=== PATIENT | male | born 1995 | race Caucasian/White ===

== ENCOUNTER 2017-09-07 03:11 | Emergency (ER) | payer BC ==
[2017-09-07 03:42] LABS: ADD MAN DIFF? NO
[2017-09-07 03:46] LABS: BASO % 1 % (0-3); EOS # 0.1 x10^3/uL (0.0-0.7); EOS % 1 % (0-3); HEMATOCRIT 41.8 % (39.0-53.0); HEMOGLOBIN 14.6 g/dL (13.0-17.5); LYMPH # 1.8 x10^3/uL (1.0-4.8); LYMPH % 30 % (24-48); MEAN CORPUSCULAR HEMOGLOBIN 30 pg (25-35); MEAN CORPUSCULAR HGB CONC 35 g/dL (31-37); MEAN CORPUSCULAR VOLUME 85 fL (79-100); MONO # 0.5 x10^3/uL (0.0-1.1); MONO % 7 % (0-9); NEUT # 3.8 x10^3uL (1.8-7.7); NEUT % 61 % (31-73); PLATELET COUNT 227 x10^3/uL (140-400); RED BLOOD COUNT 4.91 x10^6/uL (4.30-5.70); RED CELL DISTRIBUTION WIDTH 13.1 % (11.5-14.5); WHITE BLOOD COUNT 6.2 x10^3/uL (4.0-11.0)
[2017-09-07 04:02] LABS: ANION GAP 8 (6-14); BLOOD UREA NITROGEN 11 mg/dL (8-26); CALCIUM 9.2 mg/dL (8.5-10.1); CARBON DIOXIDE 29 mmol/L (21-32); CHLORIDE 103 mmol/L (98-107); GFR 93.4; GLUCOSE 108 mg/dL (70-99); POTASSIUM 3.5 mmol/L (3.5-5.1); SODIUM 140 mmol/L (136-145)
[2017-09-07 04:16] LABS: THYROID STIM HORMONE (TSH) 1.481 uIU/mL (0.358-3.74)
[2017-09-07 04:18] LABS: TROPONINI < 0.017 ng/mL (0.000-0.055)
== END 2017-09-07 06:15 | disposition home or self-care (01) ==
LOC: ER 03:11
DX: R07.89 Other chest pain (principal)
CPT/HCPCS: 36415; 71045; 80048; 84443; 84484; 85025; 93005; 99285-25